=== PATIENT | female | born 1965 | race Caucasian/White ===

== ENCOUNTER 2022-09-20 09:07 | Emergency (ER) | payer SELFPAY ==
[2022-09-20] MEDS ORDERED: Dexamethasone 10 MG/ML VIAL ONE (09:33)
== END 2022-09-20 09:45 | disposition home or self-care (01) ==
LOC: ERS 09:07
DX: J45.901 Unspecified asthma with (acute) exacerbation (principal); F17.210 Nicotine dependence, cigarettes, uncomplicated
CPT/HCPCS: 96372; 99284; J1100

== ENCOUNTER 2022-09-21 07:38 | Inpatient (IN) | payer OTHER, SELFPAY ==
[2022-09-21 08:17] LABS: #Lymphocytes 1.6 thou/uL (1.20-3.40); #Monocytes 0.8 thou/uL (0.11-0.59); #Neutrophils 9.7 thou/uL (1.40-6.50); %Basophils 0.3 % (0.0-1.0); %Eosinophils 0.2 % (0.0-10.0); %Lymphocytes 13.3 % (21.0-51.0); %Monocytes 6.6 % (0.0-10.0); %Neutrophils 79.7 % (42.0-75.0); Mean Corpuscular HGB CONC 32.4 g/dL (32.0-36.0); Mean Corpuscular Hemoglobin 30.1 pg (27.0-31.0); Mean Corpuscular Volume 92.7 fl (78.0-98.0); Mean Platelet Volume 7.1 fL (7.4-10.4); Platelet Count 318 10x3/uL (130-400); RBC Distribution Width 11.6 % (11.5-14.5); Red Blood Cell (RBC) Count 4.32 mill/uL (4.20-5.40); White Blood Cell (WBC) Count 12.2 10x3/uL (4.8-10.8)
[2022-09-21 08:38] LABS: ALT (SGPT) 13 U/L (8-55); AST (SGOT) 13 U/L (5-34); Albumin 3.9 g/dL (3.5-5.0); Alkaline Phosphatase 112 U/L (40-110); Anion Gap 14 mmol/L (10-20); BUN (Urea Nitrogen) 10 mg/dL (9.8-20.1); Bilirubin, Total 0.2 mg/dL (0.2-1.2); Calc. Creatinine Clearance 0 mL/min (70-130); Carbon Dioxide 23 mmol/L (22-29); Chloride 107 mmol/L (98-107); Estimated GFR 92; Globulin 3.3 g/dL (2.4-3.5); Glucose 102 mg/dL (70-105); Potassium 3.6 mmol/L (3.5-5.1); Protein, Total 7.2 g/dL (6.0-8.3); Sodium 140 mmol/L (136-145)
[2022-09-21] MEDS ORDERED: Magnesium 2 GM/50 ML BAG (IN WATER) ONE (08:43)
[2022-09-21] MEDS ORDERED: predniSONE 20 MG TAB ONE (08:43)
[2022-09-21 09:12] LABS: SARS-CoV-2 NAA Rapid Test Not Detected (NotDetected)
[2022-09-21] MEDS ORDERED: Azithromycin 500 MG VIAL ONE (10:27)
[2022-09-21] MEDS ORDERED: Ketorolac Tromethamine 30 MG/ML VIAL ONE (10:27)
[2022-09-21] MEDS ORDERED: cefTRIAXone\\ROCEPHIN 1 GM VIAL ONE (10:27)
[2022-09-21] MEDS ORDERED: Albuterol Sulfate 2.5 mg/3 ml Neb NEB PRN (11:13)
[2022-09-21] MEDS ORDERED: Loratadine 10 MG TAB PO SCH (11:30)
[2022-09-21] MEDS ORDERED: Arformoterol 15 MCG/2 ML NEB NEB SCH (11:45)
[2022-09-21 12:37] VITALS: BMI 32.1
[2022-09-21] MEDS: Acetaminophen 325 MG TAB PO PRN (15:53)
[2022-09-21] MEDS: Arformoterol 15 MCG/2 ML NEB NEB SCH (18:50)
[2022-09-21] MEDS: Montelukast Sodium 10 mg Tablet PO SCH (20:50)
[2022-09-21] MEDS: Ibuprofen 600 MG TAB PO PRN (20:50)
[2022-09-21] MEDS: Famotidine 20 MG TAB PO SCH (20:50)
[2022-09-22] MEDS: Arformoterol 15 MCG/2 ML NEB NEB SCH ×2 (07:20→18:54)
[2022-09-22] MEDS: Enoxaparin Sodium 40 MG/0.4 ML SYRINGE SC SCH (09:06)
[2022-09-22] MEDS: Loratadine 10 MG TAB PO SCH (09:07)
[2022-09-22] MEDS: Famotidine 20 MG TAB PO SCH ×2 (09:07→20:43)
[2022-09-22] MEDS: predniSONE 20 MG TAB PO SCH (09:07)
[2022-09-22] MEDS: Ibuprofen 600 MG TAB PO PRN (09:46)
[2022-09-22] MEDS: Fluticasone Propionate Nasal Spray 16 gm Bottle NASAL SCH (09:46)
[2022-09-22] MEDS: cefTRIAXone\\ROCEPHIN 1 GM in Sodium Chloride 0.9% 100 ML IVPB SCH (09:47)
[2022-09-22] MEDS: Azithromycin 250 MG TAB PO SCH (11:06)
[2022-09-22 12:49] LABS: #Eosinphils 0.1 thou/uL (0.0-0.7); #Lymphocytes 1.5 thou/uL (1.20-3.40); #Monocytes 0.3 thou/uL (0.11-0.59); #Neutrophils 8.2 thou/uL (1.40-6.50); %Basophils 0.2 % (0.0-1.0); %Eosinophils 0.6 % (0.0-10.0); %Lymphocytes 14.8 % (21.0-51.0); %Monocytes 3.2 % (0.0-10.0); %Neutrophils 81.3 % (42.0-75.0); Hemoglobin 12.5 g/dL (12.0-16.0); Mean Corpuscular HGB CONC 31.6 g/dL (32.0-36.0); Mean Corpuscular Hemoglobin 29.7 pg (27.0-31.0); Mean Corpuscular Volume 93.9 fl (78.0-98.0); Mean Platelet Volume 7.3 fL (7.4-10.4); Platelet Count 316 10x3/uL (130-400); RBC Distribution Width 11.8 % (11.5-14.5); Red Blood Cell (RBC) Count 4.22 mill/uL (4.20-5.40); White Blood Cell (WBC) Count 10.1 10x3/uL (4.8-10.8)
[2022-09-22 13:06] LABS: Anion Gap 14 mmol/L (10-20); BUN (Urea Nitrogen) 14 mg/dL (9.8-20.1); Calc. Creatinine Clearance 104 mL/min (70-130); Calcium 8.8 mg/dL (7.8-10.44); Carbon Dioxide 23 mmol/L (22-29); Estimated GFR 85; Glucose 100 mg/dL (70-105); Potassium 3.6 mmol/L (3.5-5.1)
[2022-09-22 13:28] LABS: Chloride 107 mmol/L (98-107); Sodium 140 mmol/L (136-145)
[2022-09-22] MEDS: Benzonatate 100 MG CAP PO PRN (18:29)
[2022-09-22] MEDS: Montelukast Sodium 10 mg Tablet PO SCH (20:38)
[2022-09-22] MEDS ORDERED: Sodium Chloride 0.65% Nasal 44 ML BOT EA NARE PRN (21:17)
[2022-09-23] MEDS: Acetaminophen 325 MG TAB PO PRN (01:13)
[2022-09-23] MEDS: Benzonatate 100 MG CAP PO PRN ×2 (01:57→10:53)
[2022-09-23] MEDS: Arformoterol 15 MCG/2 ML NEB NEB SCH (07:03)
[2022-09-23 07:08] LABS: #Basophils 0.1 thou/uL (0.0-0.2); #Eosinphils 0.1 thou/uL (0.0-0.7); #Lymphocytes 3.8 thou/uL (1.20-3.40); #Monocytes 0.8 thou/uL (0.11-0.59); #Neutrophils 5.5 thou/uL (1.40-6.50); %Basophils 0.5 % (0.0-1.0); %Eosinophils 0.6 % (0.0-10.0); %Monocytes 8.2 % (0.0-10.0); %Neutrophils 53.7 % (42.0-75.0); Hemoglobin 12.1 g/dL (12.0-16.0); Mean Corpuscular HGB CONC 32.8 g/dL (32.0-36.0); Mean Corpuscular Hemoglobin 30.9 pg (27.0-31.0); Mean Corpuscular Volume 94.1 fl (78.0-98.0); Mean Platelet Volume 7.6 fL (7.4-10.4); Platelet Count 304 10x3/uL (130-400); RBC Distribution Width 11.8 % (11.5-14.5); Red Blood Cell (RBC) Count 3.91 mill/uL (4.20-5.40); White Blood Cell (WBC) Count 10.3 10x3/uL (4.8-10.8)
[2022-09-23 07:32] LABS: Anion Gap 12 mmol/L (10-20); BUN (Urea Nitrogen) 12 mg/dL (9.8-20.1); Calc. Creatinine Clearance 108 mL/min (70-130); Calcium 9.1 mg/dL (7.8-10.44); Carbon Dioxide 27 mmol/L (22-29); Chloride 106 mmol/L (98-107); Estimated GFR 89; Glucose 79 mg/dL (70-105); Potassium 3.7 mmol/L (3.5-5.1); Sodium 141 mmol/L (136-145)
[2022-09-23 08:24] VITALS: BP 108/72; TEMP 97.9
[2022-09-23] MEDS: Famotidine 20 MG TAB PO SCH (08:33)
[2022-09-23] MEDS: predniSONE 20 MG TAB PO SCH (08:33)
[2022-09-23] MEDS: Loratadine 10 MG TAB PO SCH (08:34)
[2022-09-23] MEDS: Enoxaparin Sodium 40 MG/0.4 ML SYRINGE SC SCH (08:34)
[2022-09-23] MEDS: cefTRIAXone\\ROCEPHIN 1 GM in Sodium Chloride 0.9% 100 ML IVPB SCH (08:34)
[2022-09-23] MEDS: Fluticasone Propionate Nasal Spray 16 gm Bottle NASAL SCH (08:34)
[2022-09-23] MEDS: Azithromycin 250 MG TAB PO SCH (10:53)
== END 2022-09-23 12:25 | disposition home or self-care (01) | DRG 203 ==
LOC: ERS 07:38 → SUATTDRO 07:38 → T4-A 12:17
PROVIDERS: ADMIT Family Medicine; ATTEND Internal Medicine
DX: J45.901 Unspecified asthma with (acute) exacerbation (principal); B97.4 Respiratory syncytial virus as the cause of diseases classified elsewhere; Z20.822 Contact with and (suspected) exposure to COVID-19; F17.210 Nicotine dependence, cigarettes, uncomplicated; Z88.0 Allergy status to penicillin; Z88.5 Allergy status to narcotic agent; Z79.51 Long term (current) use of inhaled steroids; Z79.899 Other long term (current) drug therapy; Z98.51 Tubal ligation status
CPT/HCPCS: 36415; 71045; 80048; 80053; 84145; 84484; 85025; 87633; 87798; 90471; 90732; 93005; 94640; G0009; J0456; J0696; J1650; J1885; J3475; J3490; J7512; J7620